=== PATIENT | male | born 1950 | race Hispanic/Latino ===

== ENCOUNTER 2021-08-01 19:33 | Emergency (ER) | payer OTHER ==
[2021-08-01] MEDS ORDERED: levETIRAcetam in NS 200 ML ONE (19:58)
[2021-08-01 20:17] LABS: #Basophils 0.1 10x3/uL (0.0-0.2); #Eosinphils 0.2 10x3/uL (0.0-0.5); #Monocytes 0.5 10x3/uL (0.0-1.1); #Neutrophils 5.7 10x3/uL (1.5-8.4); %Basophils 0.6 % (0.0-2.0); %Eosinophils 2.2 % (0.0-6.0); %Lymphocytes 17.3 % (18.0-47.0); %Monocytes 6.2 % (0.0-10.0); %Neutrophils 73.2 % (40.0-75.0); Hemoglobin 15.3 g/dL (13.5-17.5); Mean Corpuscular HGB CONC 35.4 g/dL (32.0-36.0); Mean Corpuscular Hemoglobin 30.2 pg (27.0-33.0); Mean Corpuscular Volume 85.2 fl (81.2-95.1); Mean Platelet Volume 9.8 fl (7.4-10.4); Platelet Count 165 10x3/uL (150-450); RBC Distribution Width 13.2 % (11.5-14.5); Red Blood Cell (RBC) Count 5.07 10x6/uL (4.32-5.72); White Blood Cell (WBC) Count 7.9 10x3/uL (3.5-10.5)
[2021-08-01 20:26] LABS: ALT (SGPT) 23 U/L (8-55); AST (SGOT) 24 U/L (5-34); Albumin 3.8 g/dL (3.4-4.8); Alkaline Phosphatase 63 U/L (40-110); Anion Gap 14 mmol/L (10-20); BUN (Urea Nitrogen) 25 mg/dL (8.4-25.7); Bilirubin, Total 0.7 mg/dL (0.2-1.2); CK (CPK) 213 U/L (30-200); Calc. Creatinine Clearance 0 mL/min (70-130); Calcium 8.8 mg/dL (7.8-10.44); Carbon Dioxide 25 mmol/L (23-31); Chloride 101 mmol/L (98-107); Globulin 3.8 g/dL (2.4-3.5); Glucose 117 mg/dL (83-110); Potassium 3.2 mmol/L (3.5-5.1); Protein, Total 7.6 g/dL (5.8-8.1); Sodium 137 mmol/L (136-145)
[2021-08-01] MEDS ORDERED: hydrALAZINE 20 MG/ML VIAL ONE (21:22)
[2021-08-01] MEDS ORDERED: Lorazepam 2 MG/ML VIAL ONE (23:07)
[2021-08-02 01:26] LABS: SARS-CoV-2 NAA Rapid Test Presumptive Positive (NotDetected)
[2021-08-02 05:10] LABS: Bilirubin Neg (Negative); Blood, Urine 50 (Negative); Clarity Slightly Cloudy (Clear); Glucose, Urine (Dipstick) Normal (Negative); Ketone, Urine Negative (Negative); Leukocyte Negative (Negative); Nitrite Negative (Negative); Protein, Urine (Dipstick) 30 mg/dl (Neg-Trace); Specific Gravity, Urine 1.005 (1.002-1.036); Urobilinogen Normal mg/dL (Less than 2)
[2021-08-02 05:56] LABS: Bacteria/HPF None Seen HPF (None Seen); RBC/HPF 0-3 HPF (0-3); Squamous Epithelial None Seen HPF (0-3); WBC/HPF 0-3 HPF (0-3)
[2021-08-02] MEDS ORDERED: levETIRAcetam 500 MG TAB ONE (07:24)
[2021-08-02] MEDS ORDERED: levETIRAcetam 500 MG TAB PO SCH (07:30)
== END 2021-08-02 08:41 | disposition short-term general hospital (02) ==
LOC: EEVIPCON 19:33 → CSHERS 19:33
DX: G40.909 Epilepsy, unspecified, not intractable, without status epilepticus (principal); U07.1 COVID-19; I48.91 Unspecified atrial fibrillation; I12.9 Hypertensive chronic kidney disease with stage 1 through stage 4 chronic kidney disease, or unspecified chronic kidney disease; N39.0 Urinary tract infection, site not specified; E78.5 Hyperlipidemia, unspecified; Z79.899 Other long term (current) drug therapy
CPT/HCPCS: 70450; 71045; 72125; 80053; 80177; 81003; 81015; 82550; 83605; 84443; 85025; 93005; 94760; 96365; 96375; J0360; J1953; J2060; U0002

== ENCOUNTER 2022-04-04 20:24 | Emergency (ER) | payer OTHER ==
[2022-04-04 21:01] LABS: #Eosinphils 0.1 10x3/uL (0.0-0.5); #Monocytes 0.5 10x3/uL (0.0-1.1); #Neutrophils 7.6 10x3/uL (1.5-8.4); %Basophils 0.4 % (0.0-2.0); %Eosinophils 1.3 % (0.0-6.0); %Lymphocytes 13.6 % (18.0-47.0); %Monocytes 4.9 % (0.0-10.0); %Neutrophils 79.3 % (40.0-75.0); Hemoglobin 14.4 g/dL (13.5-17.5); Mean Corpuscular HGB CONC 35.7 g/dL (32.0-36.0); Mean Corpuscular Hemoglobin 30.3 pg (27.0-33.0); Mean Corpuscular Volume 84.8 fl (81.2-95.1); Mean Platelet Volume 9.6 fl (7.4-10.4); Platelet Count 219 10x3/uL (150-450); RBC Distribution Width 12.8 % (11.5-14.5); Red Blood Cell (RBC) Count 4.75 10x6/uL (4.32-5.72); White Blood Cell (WBC) Count 9.6 10x3/uL (3.5-10.5)
[2022-04-04 21:17] LABS: ALT (SGPT) 21 U/L (8-55); AST (SGOT) 26 U/L (5-34); Acetaminophen Less than 10.0 mcg/mL (10.0-30.0); Albumin 3.9 g/dL (3.4-4.8); Alcohol Less than 10 mg/dL (Less than 10); Alkaline Phosphatase 61 U/L (40-110); Anion Gap 15 mmol/L (10-20); BUN (Urea Nitrogen) 19 mg/dL (8.4-25.7); Bilirubin, Total 1.4 mg/dL (0.2-1.2); CK (CPK) 429 U/L (30-200); Calc. Creatinine Clearance 0 mL/min (70-130); Calcium 8.7 mg/dL (7.8-10.44); Carbon Dioxide 22 mmol/L (23-31); Chloride 102 mmol/L (98-107); Estimated GFR 68; Globulin 3.9 g/dL (2.4-3.5); Glucose 146 mg/dL (83-110); Magnesium 1.2 mg/dL (1.6-2.6); Potassium 3.1 mmol/L (3.5-5.1); Protein, Total 7.8 g/dL (5.8-8.1); Salicylate Less than 8.0 mg/dL (15.0-30.0); Sodium 136 mmol/L (136-145)
[2022-04-04] MEDS ORDERED: levETIRAcetam 500 MG/5 ML VIAL SLOW IVP SCH (22:45)
[2022-04-04] MEDS ORDERED: Lorazepam 2 MG/ML VIAL ONE (22:51)
[2022-04-04] MEDS ORDERED: levETIRAcetam 500 MG/5 ML VIAL ONE (22:57)
[2022-04-04 23:42] LABS: CKMB 12.1 ng/mL (0-6.6)
[2022-04-05] MEDS ORDERED: diphenhydrAMINE 50 MG/ML VIAL ONE (00:11)
[2022-04-05 03:53] LABS: Troponin I 0.033 ng/mL (< 0.028)
[2022-04-05] MEDS ORDERED: Potassium Bicarbonate/Cit Ac 25 MEQ TAB ONE (04:15)
[2022-04-05] MEDS ORDERED: Magnesium Oxide 250 MG TAB PO SCH (04:30)
[2022-04-05 06:07] LABS: Troponin I 0.029 ng/mL (< 0.028)
[2022-04-05] MEDS ORDERED: Ketorolac Tromethamine 30 MG/ML VIAL ONE (09:25)
[2022-04-05 09:26] LABS: SARS-CoV-2 NAA Rapid Test Not Detected (NotDetected)
[2022-04-05] MEDS ORDERED: Gabapentin 300 MG CAP ONE (09:46)
[2022-04-05 09:53] LABS: Amphetamine Not Detected (NotDetected); Barbiturates Screen Not Detected (NotDetected); Benzodiazepine Screen Detected (NotDetected); Cocaine Metabolite Screen Not Detected (NotDetected); Methadone Not Detected (NotDetected); Methamphetamine Not Detected (NotDetected); Opiate Screen Not Detected (NotDetected); Oxycodone Screen Not Detected (NotDetected); Phencyclidine (PCP) Not Detected (NotDetected); THC/Cannabinoid Screen Not Detected (NotDetected); Tricyclic Screen Not Detected (NotDetected)
[2022-04-05] MEDS ORDERED: Clopidogrel Bisulfate 75 MG TAB ONE (23:26)
[2022-04-05] MEDS ORDERED: Carvedilol 12.5 MG TAB ONE (23:27)
[2022-04-05] MEDS ORDERED: levETIRAcetam 500 MG TAB ONE (23:27)
== END 2022-04-05 10:19 ==
LOC: CSHERS 20:24
DX: R56.9 Unspecified convulsions (principal); I48.91 Unspecified atrial fibrillation; M25.561 Pain in right knee; I25.10 Atherosclerotic heart disease of native coronary artery without angina pectoris; Z79.01 Long term (current) use of anticoagulants; Z20.822 Contact with and (suspected) exposure to COVID-19
CPT/HCPCS: 36415; 36416; 70450; 80053; 80306; 80307; 82550; 82553; 83605; 83735; 84484; 85025; 93005; 96361; 96374; 96375; J1200; J1885; J1953; J2060; J3475; U0002

== ENCOUNTER 2022-04-05 17:48 | Emergency (ER) | payer OTHER ==
[2022-04-05 19:04] LABS: #Basophils 0.1 10x3/uL (0.0-0.2); #Eosinphils 0.1 10x3/uL (0.0-0.5); #Monocytes 1.3 10x3/uL (0.0-1.1); #Neutrophils 9.3 10x3/uL (1.5-8.4); %Basophils 0.4 % (0.0-2.0); %Eosinophils 0.5 % (0.0-6.0); %Lymphocytes 18.2 % (18.0-47.0); %Monocytes 10.1 % (0.0-10.0); %Neutrophils 70.4 % (40.0-75.0); Hemoglobin 14.4 g/dL (13.5-17.5); Mean Corpuscular HGB CONC 34.7 g/dL (32.0-36.0); Mean Corpuscular Hemoglobin 29.9 pg (27.0-33.0); Mean Corpuscular Volume 86.1 fl (81.2-95.1); Mean Platelet Volume 9.6 fl (7.4-10.4); Platelet Count 213 10x3/uL (150-450); RBC Distribution Width 13.2 % (11.5-14.5); Red Blood Cell (RBC) Count 4.82 10x6/uL (4.32-5.72); White Blood Cell (WBC) Count 13.2 10x3/uL (3.5-10.5)
[2022-04-05 19:37] LABS: ALT (SGPT) 21 U/L (8-55); AST (SGOT) 37 U/L (5-34); Albumin 3.8 g/dL (3.4-4.8); Alkaline Phosphatase 54 U/L (40-110); Anion Gap 17 mmol/L (10-20); BUN (Urea Nitrogen) 26 mg/dL (8.4-25.7); Bilirubin, Total 2.8 mg/dL (0.2-1.2); Calc. Creatinine Clearance 0 mL/min (70-130); Calcium 8.3 mg/dL (7.8-10.44); Carbon Dioxide 22 mmol/L (23-31); Chloride 101 mmol/L (98-107); Estimated GFR 58; Globulin 3.5 g/dL (2.4-3.5); Glucose 122 mg/dL (83-110); Potassium 2.9 mmol/L (3.5-5.1); Protein, Total 7.3 g/dL (5.8-8.1); Sodium 137 mmol/L (136-145)
[2022-04-05 19:39] LABS: CKMB 12.4 ng/mL (0-6.6)
[2022-04-06 02:43] LABS: Troponin I 0.047 ng/mL (< 0.028)
== END 2022-04-06 09:59 | disposition short-term general hospital (02) ==
LOC: CSHERS 17:48
DX: S00.01XA Abrasion of scalp, initial encounter (principal); S50.312A Abrasion of left elbow, initial encounter; S50.311A Abrasion of right elbow, initial encounter; R77.8 Other specified abnormalities of plasma proteins; W19.XXXA Unspecified fall, initial encounter
CPT/HCPCS: 36415; 70450; 80053; 82553; 83880; 84484; 85025; 93005

== ENCOUNTER 2023-03-01 13:57 | Inpatient (IN) | payer OTHER ==
[2023-03-01 14:58] LABS: #Eosinphils 0.2 10x3/uL (0.0-0.5); #Monocytes 0.9 10x3/uL (0.0-1.1); #Neutrophils 4.9 10x3/uL (1.5-8.4); %Basophils 0.5 % (0.0-2.0); %Eosinophils 2.1 % (0.0-6.0); %Lymphocytes 24.2 % (18.0-47.0); %Monocytes 10.7 % (0.0-10.0); %Neutrophils 62.1 % (40.0-75.0); Hematocrit 40.3 % (38.8-50.0); Hemoglobin 13.9 g/dL (13.5-17.5); Mean Corpuscular HGB CONC 34.5 g/dL (32.0-36.0); Mean Corpuscular Hemoglobin 29.8 pg (27.0-33.0); Mean Corpuscular Volume 86.3 fl (81.2-95.1); Mean Platelet Volume 9.8 fl (7.4-10.4); Platelet Count 194 10x3/uL (150-450); RBC Distribution Width 13.5 % (11.5-14.5); Red Blood Cell (RBC) Count 4.67 10x6/uL (4.32-5.72)
[2023-03-01 15:06] LABS: ALT (SGPT) 14 U/L (8-55); AST (SGOT) 19 U/L (5-34); Albumin 3.8 g/dL (3.4-4.8); Alkaline Phosphatase 63 U/L (40-110); Anion Gap 16 mmol/L (10-20); BUN (Urea Nitrogen) 30 mg/dL (8.4-25.7); Bilirubin, Total 1.1 mg/dL (0.2-1.2); Calc. Creatinine Clearance 0 mL/min (70-130); Calcium 8.9 mg/dL (7.8-10.44); Carbon Dioxide 25 mmol/L (23-31); Chloride 101 mmol/L (98-107); Estimated GFR 53; Globulin 3.4 g/dL (2.4-3.5); Glucose 105 mg/dL (83-110); Potassium 3.5 mmol/L (3.5-5.1); Protein, Total 7.2 g/dL (5.8-8.1); Sodium 138 mmol/L (136-145)
[2023-03-01 15:07] LABS: Troponin I 0.019 ng/mL (< 0.028)
[2023-03-01] MEDS ORDERED: Furosemide 40 MG (4 mL) VIAL ONE (16:28)
[2023-03-01] MEDS ORDERED: Acetaminophen 325 MG TAB PO PRN (16:35)
[2023-03-01] MEDS ORDERED: Ondansetron ODT 4 MG TAB PO PRN (16:35)
[2023-03-01] MEDS ORDERED: Ondansetron PF 4 MG/2 ML Vial IVP PRN (16:35)
[2023-03-01 16:51] LABS: Magnesium 1.4 mg/dL (1.6-2.6)
[2023-03-01 19:42] LABS: Troponin I 0.022 ng/mL (< 0.028)
[2023-03-01 21:42] LABS: Troponin I 0.031 ng/mL (< 0.028)
[2023-03-02] MEDS ORDERED: Atorvastatin Calcium 40 MG TAB PO SCH (01:30)
[2023-03-02] MEDS ORDERED: Carvedilol 3.125 MG TAB PO SCH (01:30)
[2023-03-02] MEDS ORDERED: Rivaroxaban 15 MG TAB PO SCH ×2 (01:30→21:00)
[2023-03-02] MEDS ORDERED: levETIRAcetam 500 MG TAB PO SCH (01:30)
[2023-03-02 04:02] LABS: #Eosinphils 0.2 10x3/uL (0.0-0.5); #Monocytes 0.8 10x3/uL (0.0-1.1); #Neutrophils 4.1 10x3/uL (1.5-8.4); %Basophils 0.6 % (0.0-2.0); %Eosinophils 2.1 % (0.0-6.0); %Lymphocytes 27.4 % (18.0-47.0); %Monocytes 11.5 % (0.0-10.0); %Neutrophils 58.3 % (40.0-75.0); Hemoglobin 13.9 g/dL (13.5-17.5); Mean Corpuscular HGB CONC 34.8 g/dL (32.0-36.0); Mean Corpuscular Hemoglobin 29.3 pg (27.0-33.0); Mean Corpuscular Volume 84.4 fl (81.2-95.1); Mean Platelet Volume 9.9 fl (7.4-10.4); Platelet Count 193 10x3/uL (150-450); RBC Distribution Width 13.5 % (11.5-14.5); Red Blood Cell (RBC) Count 4.74 10x6/uL (4.32-5.72)
[2023-03-02 04:11] LABS: Anion Gap 14 mmol/L (10-20); BUN (Urea Nitrogen) 28 mg/dL (8.4-25.7); Calc. Creatinine Clearance 70 mL/min (70-130); Calcium 8.9 mg/dL (7.8-10.44); Carbon Dioxide 26 mmol/L (23-31); Chloride 100 mmol/L (98-107); Estimated GFR 59; Glucose 106 mg/dL (83-110); Potassium 2.9 mmol/L (3.5-5.1); Sodium 137 mmol/L (136-145)
[2023-03-02] MEDS ORDERED: Furosemide 40 MG (4 mL) VIAL SLOW IVP SCH (06:00)
[2023-03-02 07:14] LABS: Magnesium 1.3 mg/dL (1.6-2.6); Troponin I 0.015 ng/mL (< 0.028)
[2023-03-02] MEDS: DULoxetine 30 MG CAP PO SCH (08:06)
[2023-03-02] MEDS: Gabapentin 300 MG CAP PO SCH ×3 (08:06→21:56)
[2023-03-02] MEDS: Clopidogrel Bisulfate 75 MG TAB PO SCH (08:06)
[2023-03-02] MEDS: levETIRAcetam 500 MG TAB PO SCH ×2 (08:08→21:54)
[2023-03-02] MEDS: Aspirin Chewable 81 MG TAB PO SCH (08:08)
[2023-03-02] MEDS: Lacosamide 50 mg Tablet PO SCH ×2 (08:08→21:55)
[2023-03-02] MEDS: Potassium Chloride 20 MEQ TAB PO SCH ×2 (08:08→08:19)
[2023-03-02] MEDS: Lisinopril 20 MG TAB PO SCH (08:09)
[2023-03-02] MEDS: Calcium Carbonate 600 MG + Vit D TAB PO SCH ×2 (08:09→21:54)
[2023-03-02] MEDS ORDERED: Magnesium Sulfate 4 GM in Sodium Chloride 0.9% 250 ML 250 ML IVPB SCH (08:15)
[2023-03-02] MEDS: Potassium Chloride 20 MEQ in Premix 1 BAG IVPB SCH ×3 (08:19→13:56)
[2023-03-02] MEDS ORDERED: Amlodipine 10 MG TAB PO SCH (09:00)
[2023-03-02] MEDS ORDERED: Hydrochlorothiazide 25 MG TAB PO SCH (09:00)
[2023-03-02] MEDS: Magnesium 2 GM/50 ML(in water) 2 GM in Premix 1 BAG IVPB SCH ×2 (09:45→11:53)
[2023-03-02] MEDS: Carvedilol 3.125 MG TAB PO SCH (16:57)
[2023-03-02] MEDS: Atorvastatin Calcium 40 MG TAB PO SCH (21:55)
[2023-03-03 05:47] LABS: #Basophils 0.1 10x3/uL (0.0-0.2); #Eosinphils 0.2 10x3/uL (0.0-0.5); #Monocytes 0.9 10x3/uL (0.0-1.1); #Neutrophils 4.8 10x3/uL (1.5-8.4); %Basophils 0.6 % (0.0-2.0); %Lymphocytes 28.8 % (18.0-47.0); %Monocytes 10.9 % (0.0-10.0); %Neutrophils 57.3 % (40.0-75.0); Hematocrit 39.9 % (38.8-50.0); Hemoglobin 13.9 g/dL (13.5-17.5); Mean Corpuscular HGB CONC 34.8 g/dL (32.0-36.0); Mean Corpuscular Hemoglobin 29.9 pg (27.0-33.0); Mean Corpuscular Volume 85.8 fl (81.2-95.1); Mean Platelet Volume 9.8 fl (7.4-10.4); Platelet Count 183 10x3/uL (150-450); Red Blood Cell (RBC) Count 4.65 10x6/uL (4.32-5.72); White Blood Cell (WBC) Count 8.3 10x3/uL (3.5-10.5)
[2023-03-03 05:56] LABS: Anion Gap 15 mmol/L (10-20); BUN (Urea Nitrogen) 33 mg/dL (8.4-25.7); Calc. Creatinine Clearance 56 mL/min (70-130); Calcium 9.2 mg/dL (7.8-10.44); Carbon Dioxide 25 mmol/L (23-31); Chloride 103 mmol/L (98-107); Estimated GFR 50; Glucose 102 mg/dL (83-110); Potassium 3.7 mmol/L (3.5-5.1); Sodium 139 mmol/L (136-145)
[2023-03-03 09:55] LABS: Magnesium 1.5 mg/dL (1.6-2.6)
[2023-03-03] MEDS ORDERED: Magnesium 2 GM/50 ML(in water) 2 GM in Premix 1 BAG IVPB SCH (10:30)
[2023-03-03] MEDS: Aspirin Chewable 81 MG TAB PO SCH (11:43)
[2023-03-03] MEDS: DULoxetine 30 MG CAP PO SCH (11:43)
[2023-03-03] MEDS: Potassium Chloride 20 MEQ TAB PO SCH ×2 (11:43→17:01)
[2023-03-03] MEDS: Clopidogrel Bisulfate 75 MG TAB PO SCH (11:44)
[2023-03-03] MEDS: Lisinopril 20 MG TAB PO SCH (11:44)
[2023-03-03] MEDS: levETIRAcetam 500 MG TAB PO SCH ×2 (11:44→20:38)
[2023-03-03] MEDS: Carvedilol 3.125 MG TAB PO SCH (11:45)
[2023-03-03] MEDS: Gabapentin 300 MG CAP PO SCH ×3 (13:24→20:38)
[2023-03-03] MEDS: Lacosamide 50 mg Tablet PO SCH ×2 (13:24→20:38)
[2023-03-03] MEDS: Calcium Carbonate 600 MG + Vit D TAB PO SCH ×2 (13:24→20:37)
[2023-03-03] MEDS ORDERED: Rivaroxaban 10 MG TAB PO SCH (17:00)
[2023-03-03] MEDS: Atorvastatin Calcium 40 MG TAB PO SCH (20:37)
[2023-03-04 04:13] VITALS: BMI 33.3
[2023-03-04 04:47] LABS: Anion Gap 9 mmol/L (10-20); BUN (Urea Nitrogen) 12 mg/dL (8.4-25.7); Calc. Creatinine Clearance 138 mL/min (70-130); Carbon Dioxide 23 mmol/L (23-31); Chloride 107 mmol/L (98-107); Estimated GFR 98; Glucose 158 mg/dL (83-110); Magnesium 1.4 mg/dL (1.6-2.6); Potassium 3.2 mmol/L (3.5-5.1); Sodium 136 mmol/L (136-145)
[2023-03-04] MEDS ORDERED: Magnesium 2 GM/50 ML(in water) 2 GM in Premix 1 BAG IVPB SCH (08:00)
[2023-03-04] MEDS ORDERED: Potassium Chloride 20 MEQ TAB PO SCH (08:00)
[2023-03-04] MEDS: levETIRAcetam 500 MG TAB PO SCH (09:29)
[2023-03-04] MEDS: Clopidogrel Bisulfate 75 MG TAB PO SCH (09:29)
[2023-03-04] MEDS: Lacosamide 50 mg Tablet PO SCH (09:29)
[2023-03-04] MEDS: Lisinopril 20 MG TAB PO SCH (09:30)
[2023-03-04] MEDS: DULoxetine 30 MG CAP PO SCH (09:30)
[2023-03-04] MEDS: Gabapentin 300 MG CAP PO SCH (09:30)
[2023-03-04] MEDS: Calcium Carbonate 600 MG + Vit D TAB PO SCH (09:31)
[2023-03-04 11:41] VITALS: TEMP 98
[2023-03-04 13:37] VITALS: BP 135/77
== END 2023-03-04 13:51 | DRG 292 ==
LOC: EEVIPCON 13:57 → CSHERS 13:57 → CSHTELE 16:32 → OBSVTOIN 03-03 14:29
PROVIDERS: ADMIT Family Medicine; ATTEND Family Medicine
DX: I13.0 Hypertensive heart and chronic kidney disease with heart failure and stage 1 through stage 4 chronic kidney disease, or unspecified chronic kidney disease (principal); I48.11 Longstanding persistent atrial fibrillation; N17.9 Acute kidney failure, unspecified; I50.9 Heart failure, unspecified; I48.91 Unspecified atrial fibrillation; I25.10 Atherosclerotic heart disease of native coronary artery without angina pectoris; Z95.5 Presence of coronary angioplasty implant and graft; Z90.49 Acquired absence of other specified parts of digestive tract; Z79.899 Other long term (current) drug therapy; E87.6 Hypokalemia; E83.42 Hypomagnesemia; E78.5 Hyperlipidemia, unspecified; Z79.82 Long term (current) use of aspirin; I95.1 Orthostatic hypotension; N18.9 Chronic kidney disease, unspecified; I5A Non-ischemic myocardial injury (non-traumatic)
CPT/HCPCS: 36415; 71045; 80048; 80053; 83735; 83880; 84443; 84484; 85025; 93005; 93010; 93306; 94760; 96374; 96375; 96376; G0378; J1940; J3475; J3480

== ENCOUNTER 2023-06-30 20:37 | Emergency (ER) | payer OTHER ==
[2023-06-30] MEDS ORDERED: Lorazepam 2 MG/ML VIAL ONE ×2 (20:41→20:46)
[2023-06-30] MEDS ORDERED: levETIRAcetam 500 MG (5 mL) VIAL ONE (20:44)
[2023-06-30] MEDS ORDERED: Etomidate 40 MG (20 mL) VIAL ONE (21:06)
[2023-06-30] MEDS ORDERED: Rocuronium Bromide 10 MG/ML (10ML VIAL) ONE (21:07)
[2023-06-30 21:08] LABS: #Basophils 0.05 10x3/uL (0.0-0.2); #Monocytes 0.73 10x3/uL (0.0-1.1); #Neutrophils 4.99 10x3/uL (1.5-8.4); %Basophils 0.5 % (0.0-2.0); %Eosinophils 1.9 % (0.0-6.0); %Lymphocytes 42.8 % (18.0-47.0); %Neutrophils 47.5 % (40.0-75.0); Hematocrit 46.5 % (38.8-50.0); Hemoglobin 15.1 g/dL (13.5-17.5); Mean Corpuscular HGB CONC 32.5 g/dL (32.0-36.0); Mean Corpuscular Hemoglobin 29.3 pg (27.0-33.0); Mean Corpuscular Volume 90.3 fl (81.2-95.1); Mean Platelet Volume 10.3 fl (7.4-10.4); Platelet Count 188 10x3/uL (150-450); Red Blood Cell (RBC) Count 5.15 10x6/uL (4.32-5.72); White Blood Cell (WBC) Count 10.5 10x3/uL (3.5-10.5)
[2023-06-30] MEDS ORDERED: FENTANYL 2,000MCG/100-0.9%NACL 100 ML ONE (21:09)
[2023-06-30 21:16] LABS: ALT (SGPT) 17 U/L (8-55); AST (SGOT) 24 U/L (5-34); Albumin 3.7 g/dL (3.4-4.8); Alkaline Phosphatase 100 U/L (40-110); Anion Gap 17 mmol/L (10-20); BUN (Urea Nitrogen) 21 mg/dL (8.4-25.7); Bilirubin, Total 1.1 mg/dL (0.2-1.2); Calc. Creatinine Clearance 0 mL/min (70-130); Calcium 8.6 mg/dL (7.8-10.44); Carbon Dioxide 24 mmol/L (23-31); Chloride 103 mmol/L (98-107); Estimated GFR 60; Globulin 4.1 g/dL (2.4-3.5); Glucose 163 mg/dL (83-110); Potassium 3.8 mmol/L (3.5-5.1); Protein, Total 7.8 g/dL (5.8-8.1); Sodium 140 mmol/L (136-145)
[2023-06-30 21:22] LABS: Critical Call Chem-Lactate ERS.LH1 @2120; Troponin I 0.025 ng/mL (< 0.028)
[2023-06-30 21:38] LABS: Acetaminophen Less than 10 mcg/mL (10.0-30.0); Alcohol Less than 10.0 mg/dL (Less than 10); Magnesium 1.5 mg/dL (1.6-2.6); Salicylate Less than 8.0 mg/dL (15.0-30.0)
[2023-06-30 21:45] LABS: Actual Bicarbonate (HCO3v) 22.8 mEq/L (22-28); Analyzer IN Cardio CS ER; Base Excess -7.7 mEq/L (-2 - +2); Calcium, Ionized (venous) 1.09 mmol/L (1.16-1.32); Chloride (VBG) 102 mmol/L (98-106); Critical Notified By: CP.PH; Hematocrit-VBG 48 % (42.0-52.0); Hemoglobin (Hb) 16.3 g/dL (12.6-17.4); Potassium (VBG) 3.86 mmol/L (3.70-5.30); Puncture Site Other Site; Sodium 143 mmol/L (133-146); pH (venous) 7.143 (7.32-7.43)
[2023-06-30 21:47] LABS: Influenza A by NAA Not Detected (NotDetected); Influenza B by NAA Not Detected (NotDetected); SARS-CoV-2 NAA Rapid Test Not Detected (NotDetected)
[2023-06-30 21:49] LABS: Actual Bicarbonate (HCO3a) 23.7 mEq/L (22-28); Analyzer IN Cardio CS ER; Base Excess (BEa) -4.2 mEq/L (-2.0 to +3.0); Calcium, Ionized (arterial) 1.06 mmol/L (1.12-1.30); Carboxyhemoglobin (COHb) 0.3 gm% (0.0-3.0); Critical Notified By: CP.JR1; Hematocrit-ABG 41 % (42.0-52.0); Hemoglobin (Hb) 13.9 g/dL (14.0-18.0); O2 Tension (PaO2), arterial 157.4 mmHg (> 70.0); Potassium - ABG Lab 3.47 mmol/L (3.70-5.30); Puncture Site LRA; RapidComm Collect By CP.JR1; pH, Arterial 7.252 (7.35-7.45)
[2023-06-30] MEDS ORDERED: NOREPINEPHRINE 8 MG/250 ML-D5W 250 ML ONE (21:52)
[2023-06-30 22:15] LABS: Amphetamine Not Detected (NotDetected); Barbiturates Screen Not Detected (NotDetected); Benzodiazepine Screen Not Detected (NotDetected); Cocaine Metabolite Screen Not Detected (NotDetected); Methadone Not Detected (NotDetected); Methamphetamine Not Detected (NotDetected); Opiate Screen Not Detected (NotDetected); Oxycodone Screen Not Detected (NotDetected); Phencyclidine (PCP) Not Detected (NotDetected); THC/Cannabinoid Screen Not Detected (NotDetected); Tricyclic Screen Not Detected (NotDetected)
[2023-06-30 23:29] LABS: Bilirubin Neg (Negative); Blood, Urine 25 (Negative); Clarity Cloudy (Clear); Glucose, Urine (Dipstick) Normal (Negative); Ketone, Urine Negative (Negative); Leukocyte Negative (Negative); Nitrite Negative (Negative); Protein, Urine (Dipstick) 500 mg/dl (Neg-Trace); Specific Gravity, Urine 1.015 (1.005-1.030)
[2023-06-30 23:38] LABS: Bacteria/HPF None Seen HPF (None Seen); CAUTI Indications for Culture Alt mental st,lethar; RBC/HPF 0-3 HPF (0-3); Squamous Epithelial 0-3 HPF (0-3); Urine Culture Reflex No No; WBC/HPF 0-3 HPF (0-3)
[2023-06-30] MEDS ORDERED: Vancomycin 1 GM VIAL ONE (23:43)
[2023-06-30] MEDS ORDERED: Cefepime 2 GM VIAL ONE (23:44)
== END 2023-07-01 01:24 | disposition short-term general hospital (02) ==
LOC: CSHERS 20:37
DX: J96.92 Respiratory failure, unspecified with hypercapnia (principal); R07.9 Chest pain, unspecified; I95.9 Hypotension, unspecified; R56.9 Unspecified convulsions; I25.10 Atherosclerotic heart disease of native coronary artery without angina pectoris; I48.91 Unspecified atrial fibrillation; Z79.02 Long term (current) use of antithrombotics/antiplatelets; Z79.01 Long term (current) use of anticoagulants
CPT/HCPCS: 31500; 36415; 36416; 36600; 70450; 71045; 80053; 80306; 80307; 81001; 82805; 83605; 83735; 84484; 85025; 87040; 87086; 93005; 94002; 94003; 94760; J0692; J1953; J2060; J3370

== ENCOUNTER 2023-07-09 11:04 | Emergency (ER) | payer OTHER ==
[2023-07-09] MEDS ORDERED: Ondansetron PF 4 MG/2 ML Vial ONE (11:34)
[2023-07-09] MEDS ORDERED: Morphine 4 MG/ML VIAL ONE (11:34)
[2023-07-09 11:51] LABS: #Basophils 0.04 10x3/uL (0.0-0.2); #Eosinphils 0.17 10x3/uL (0.0-0.5); #Monocytes 0.67 10x3/uL (0.0-1.1); #Neutrophils 3.15 10x3/uL (1.5-8.4); %Basophils 0.7 % (0.0-2.0); %Eosinophils 2.9 % (0.0-6.0); %Lymphocytes 30.1 % (18.0-47.0); %Monocytes 11.6 % (0.0-10.0); %Neutrophils 54.5 % (40.0-75.0); Hematocrit 37.8 % (38.8-50.0); Hemoglobin 12.9 g/dL (13.5-17.5); Mean Corpuscular HGB CONC 34.1 g/dL (32.0-36.0); Mean Corpuscular Hemoglobin 30.2 pg (27.0-33.0); Mean Corpuscular Volume 88.5 fl (81.2-95.1); Mean Platelet Volume 10.2 fl (7.4-10.4); Platelet Count 156 10x3/uL (150-450); RBC Distribution Width 14.4 % (11.5-14.5); Red Blood Cell (RBC) Count 4.27 10x6/uL (4.32-5.72); White Blood Cell (WBC) Count 5.8 10x3/uL (3.5-10.5)
[2023-07-09] MEDS ORDERED: fentaNYL 50 mcg/mL 1 mL Vial ONE (12:04)
[2023-07-09 12:05] LABS: ALT (SGPT) 35 U/L (8-55); AST (SGOT) 44 U/L (5-34); Albumin 3.4 g/dL (3.4-4.8); Alkaline Phosphatase 80 U/L (40-110); Anion Gap 13 mmol/L (10-20); BUN (Urea Nitrogen) 18 mg/dL (8.4-25.7); Calc. Creatinine Clearance 0 mL/min (70-130); Calcium 8.5 mg/dL (7.8-10.44); Carbon Dioxide 24 mmol/L (23-31); Chloride 107 mmol/L (98-107); Estimated GFR 90; Globulin 3.6 g/dL (2.4-3.5); Glucose 84 mg/dL (83-110); Lipase 21 U/L (8-78); Potassium 3.5 mmol/L (3.5-5.1); Sodium 140 mmol/L (136-145)
== END 2023-07-09 14:15 ==
LOC: CSHERS 11:04 → EEVIPCON 11:04 → CSHERS 14:15
DX: S70.12XA Contusion of left thigh, initial encounter (principal); S70.11XA Contusion of right thigh, initial encounter; N28.89 Other specified disorders of kidney and ureter; R91.1 Solitary pulmonary nodule; R16.0 Hepatomegaly, not elsewhere classified; X58.XXXA Exposure to other specified factors, initial encounter
CPT/HCPCS: 36415; 74177; 80053; 83690; 85025; 93005; 96374; 96375; J2270; J2405; J3010